=== PATIENT | female | born 1985 | race Caucasian/White ===

== ENCOUNTER 2019-02-21 10:43 | Day surgery (SDC) | payer OTHER ==
[~2019-02-21] VITALS: Ht 152.4 cm; Wt 64.0 kg
[~2019-02-21 10:43] MED LIST: ACET500; AIMOVIG AU70 MG/1 ML SC; AMOX500 PO; DULO30 PO; Esgic Tablet1 EACH PO; FERSU300 PO; HYDACE25S PR; IBUP600; IBUP600 PO; META400 PO; Norco 5-325 Ta1 EACH PO; OXYACE5T; OXYACE7.5T PO; PROACE100 PO; Sprintec1 EACH PO; TRAM50 PO; Zofran4 MG PO; [UNRECOGNIZED DRUG - OTHER]
--- NOTE | 2019-02-21 11:44 | NUR ---
History, Chart, Medications and Allergies reviewed before start of procedure. Lungs clear T/O to Auscultation. Patient confirms NPO status and agrees with scheduled surgery. Patient states colon prep results clear. Patient States Post-Procedure ride home has been arranged.
[2019-02-21] MEDS ORDERED: Amoxicillin500 MG PO (11:51)
[2019-02-21] MEDS ORDERED: Augmentin 875-1 EACH PO (11:52)
--- NOTE | 2019-02-21 12:42 | NUR ---
02/21/19 1242 ARACELI LANDON History, Chart, Medications and Allergies reviewed before start of procedure.MONITOR INTACT WITH CONTINUOUS PULSE OXIMETRY AND INTERMITTENT BP.O2 VIA N/C INTACT THROUGHOUT SEDATION/PROCEDURE. 3-LEAD EKG REVIEWED WITH PHYSICIAN PRIOR TO START OF PROCEDURE.PATIENT DETERMINED TO BE ASA APPROPRIATE FOR PROPOFOL SEDATION PRIOR TO START OF PROCEDURE BY .
--- NOTE | 2019-02-21 13:25 | NUR ---
ASSUMED CARE FROM MAKENZIE ARAGON. PT C/O SEVERE LLQ ABD PAIN PAIN. PT MOANING AND GROANING. DR. ROBLES ORDERED ABD XRAY. PT GIVEN WET SWAB FOR MOUTH, PT TO REMAIN NPO STATUS AT THIS TIME.
--- NOTE | 2019-02-21 13:37 | NUR ---
PT TAKEN TO RADIOLOGY VIA [facility].
--- NOTE | 2019-02-21 14:30 | NUR ---
Patient up to Ambulate independently. Gait steady. Discharge instructions reviewed with patient. Patient verbalizes understanding. Copy given to patient to take home. Patient States Post-Procedure ride home has been arranged. Discharged via wheelchair to private car for ride home.
[2019-03-13] MEDS ORDERED: Sprintec1 EACH PO (12:34)
[2019-03-13] MEDS ORDERED: AIMOVIG AU70 MG/1 ML SC (12:34)
[2019-03-13] MEDS ORDERED: FERSU300 PO (12:35)
[2019-03-13] MEDS ORDERED: DULO30 PO (12:35)
[2019-03-13] MEDS ORDERED: Fiorinal Capsu1 EACH (12:35)
[2019-03-13] MEDS ORDERED: TRAM50 PO (12:36)
== END 2019-02-21 14:33 | disposition home or self-care (01) ==
LOC: ORSCMMR 10:43 → ORD 12:30 → ORSCMMR 14:33
PROVIDERS: Internal Medicine Gastroenterology
PROC: 0DBH8ZX Excision of Cecum, Via Natural or Artificial Opening Endoscopic, Diagnostic (ICD-10-PCS; principal; 2019-02-21 12:30)
PROC: 0DBE8ZX Excision of Large Intestine, Via Natural or Artificial Opening Endoscopic, Diagnostic (ICD-10-PCS; principal; 2019-02-21 12:30)
DX: K92.1 Melena (principal); R10.32 Left lower quadrant pain; R19.4 Change in bowel habit; K59.00 Constipation, unspecified; D12.0 Benign neoplasm of cecum; K64.4 Residual hemorrhoidal skin tags; K64.8 Other hemorrhoids; Z87.891 Personal history of nicotine dependence; Z79.899 Other long term (current) drug therapy
CPT/HCPCS: 74019; 88305; J2250; J2704; J3010; J7120

== ENCOUNTER 2019-03-22 07:18 | Day surgery (SDC) | payer OTHER ==
[~2019-03-22] VITALS: Ht 149.9 cm; Wt 76.1 kg
[~2019-03-22 07:18] MED LIST changes: +Amoxicillin500 MG PO; +Augmentin 875-1 EACH PO; +Fiorinal Capsu1 EACH
--- NOTE | 2019-03-22 09:07 | NUR ---
03/22/19 0907 Coral Pascual FLUID DEFICIT OF 300 ML REPORTED TO SURGEON
--- NOTE | 2019-03-22 10:45 | NUR ---
03/22/19 [place]5 Arlyn Small RN RECIEVED REPORT FROM NURSE BOYER. PHILLIP. PT WAS IN THE RECLINER ACCOMPANIED BY HER . PT CURRENTLY RATES PAIN 8. RN ADMINISTERED 1 ADDITIONAL TAB OF PERCOCET AND 800MG IBUPROFEN PER DR'S ORDERS. PT IS TOLERATING PO FLUIDS AND CRACKERS WELL. PT DENIES NAUSEA.
== END 2019-03-22 11:14 | disposition home or self-care (01) ==
LOC: ORSCSDS 07:18
PROVIDERS: Obstetrics & Gynecology
PROC: 0UDB8ZX Extraction of Endometrium, Via Natural or Artificial Opening Endoscopic, Diagnostic (ICD-10-PCS; principal; 2019-03-22 08:30)
DX: N84.0 Polyp of corpus uteri (principal); N92.0 Excessive and frequent menstruation with regular cycle; K21.9 Gastro-esophageal reflux disease without esophagitis; Z79.899 Other long term (current) drug therapy
CPT/HCPCS: 88305; J0690; J1100; J2250; J2405; J2704; J3010; J7120

== ENCOUNTER 2021-03-16 13:07 | Emergency (ER) | payer OTHER ==
[~2021-03-16] VITALS: Ht 149.9 cm; Wt 78.0 kg
== END 2021-03-16 16:39 | disposition home or self-care (01) ==
LOC: ER 13:07
DX: U07.1 COVID-19 (principal); K59.09 Other constipation; K21.9 Gastro-esophageal reflux disease without esophagitis; Z79.899 Other long term (current) drug therapy; Z88.2 Allergy status to sulfonamides; Z88.6 Allergy status to analgesic agent
CPT/HCPCS: 96374; 96375; 99284-25; J0780; J1200; J3010; J7030

== ENCOUNTER 2023-03-19 09:24 | Emergency (ER) | payer BC ==
[~2023-03-19] VITALS: Ht 160 cm; Wt 65.8 kg
[2023-03-19 10:17] LABS: BASOPHILS ABSOLUTE AUTO 0.03 K/mm3 (0.00-0.23); BASOPHILS PERCENT AUTO 0 % (0-2); EOSINOPHILS ABSOLUTE AUTO 0.16 K/mm3 (0.00-0.68); EOSINOPHILS PERCENT AUTO 2 % (0-6); Hematocrit 37.4 % (33.0-51.0); Hemoglobin 12.6 g/dL (11.5-16.0); IMMATURE GRAN ABSOLUTE AUTO 0.03 K/mm3 (0.00-0.10); IMMATURE GRAN PERCENT AUTO 0 % (0-1); LYMPHOCYTES ABSOLUTE AUTO 1.92 K/mm3 (0.84-5.20); LYMPHOCYTES PERCENT AUTO 23 % (21-46); MONOCYTES ABSOLUTE AUTO 0.42 K/mm3 (0.16-1.47); MONOCYTES PERCENT AUTO 5 % (4-13); Mean Corpuscular HGB 29.5 pg (26.0-34.0); Mean Corpuscular HGB Conc 33.7 g/dL (31.5-36.5); Mean Corpuscular Volume 88 fL (80-100); Mean Platelet Volume 9.9 fL (9.1-12.4); NEUTROPHILS ABSOLUTE AUTO 5.74 K/mm3 (1.96-9.15); NEUTROPHILS PERCENT AUTO 69 % (41-73); Platelet Count 269 K/mm3 (150-400); RDW Coefficient Variation 11.9 % (11.7-14.2); RDW Standard Deviation 38.4 fL (35.1-46.3); Red Blood Cell Count 4.27 M/mm3 (3.80-5.20)
[2023-03-19 10:39] LABS: Albumin, Blood 3.7 g/dL (3.4-5.0); Albumin/Globulin Ratio 0.9 (0.8-1.8); Bilirubin, Total 0.2 mg/dL (0.1-1.0); Bun/Creatinine Ratio 25.1 (12.0-20.0); Calcium, Blood 9.3 mg/dL (8.5-10.1); Creatinine, Blood 0.52 mg/dL (0.40-1.00); Potassium, Blood 3.6 mmol/L (3.5-5.5); Total Protein, Blood 7.7 g/dL (6.4-8.2)
[2023-03-19] MEDS ORDERED: LOSA50 PO (11:41)
[2023-03-19] MEDS ORDERED: HYDROCODONE-AC1 EA19 PO (11:41)
[2023-03-19] MEDS ORDERED: Phenergan25 M1 PO (11:42)
[2023-03-19] MEDS ORDERED: OMEP20ER PO (11:42)
[2023-03-19] MEDS ORDERED: MILI 0.25-0.031 EAC1 PO (11:43)
[2023-03-19] MEDS ORDERED: CYCL10 PO (11:44)
[2023-03-19 12:19] LABS: Bilirubin, Direct <0.1 mg/dL (0.0-0.3); Bilirubin, Indirect Unable to Calculate mg/dL (0.1-0.7); Bilirubin, Total 0.3 mg/dL (0.1-1.0)
[2023-03-19 13:00] VITALS: BP 132/84
[2023-03-22] MEDS ORDERED: Norco 7.5-3251 EACH PO (17:59)
[2023-03-22] MEDS ORDERED: METPHE20 PO ×2 (18:00→18:01)
[2023-03-22] MEDS ORDERED: NURTEC ODT75 MG PO (18:04)
[2023-03-22] MEDS ORDERED: AIMOVIG AU140 MG/1 M SC (18:05)
[2023-03-22] MEDS ORDERED: TRAZ100 PO (18:06)
== END 2023-03-19 13:21 | disposition home or self-care (01) ==
LOC: ER 09:24
PROVIDERS: Physician Assistant; Student in an Organized Health Care Education/Training Program
DX: K29.70 Gastritis, unspecified, without bleeding (principal); Z88.2 Allergy status to sulfonamides; Z88.6 Allergy status to analgesic agent; Z79.3 Long term (current) use of hormonal contraceptives; Z79.899 Other long term (current) drug therapy; Z87.891 Personal history of nicotine dependence; Z87.19 Personal history of other diseases of the digestive system; Z86.010 Personal history of colon polyps
CPT/HCPCS: 74177; 80053; 82247; 82248; 83690; 84703; 85025; 96374-59; 96375; 99284-25; J1790; J1885; J2405; Q9967

== ENCOUNTER → 2024-12-04 | Outpatient (CLI) | payer OTHER ==
[~2024-12-04] MED LIST changes: +AIMOVIG AU140 MG/1 M SC; +CYCL10 PO; +HYDROCODONE-AC1 EA19 PO; +LOSA50 PO; +METPHE20 PO; +MILI 0.25-0.031 EAC1 PO; +NURTEC ODT75 MG PO; +Norco 7.5-3251 EACH PO; +OMEP20ER PO; +Phenergan25 M1 PO; +TRAZ100 PO
== END ==
LOC: LAB 15:05 → LAB SHORT 15:05
DX: N64.3 Galactorrhea not associated with childbirth (principal)
CPT/HCPCS: 84146

== ENCOUNTER → 2025-01-27 | Outpatient (CLI) | payer OTHER ==
[2025-01-27 16:28] LABS: Source, Urine Clean Catch
[2025-01-27 18:57] LABS: Bilirubin, Urine Neg (Neg); Glucose Qualitative, Urine Neg (Neg); Ketones, Urine Neg (Neg); Leukocyte Esterase, Urine 1+ (Neg); Protein, Urine 1+ (Neg); Specific Gravity, Urine 1.010 (1.003-1.022); Urobilinogen, Urine NORM (Normal)
[2025-01-27 19:11] LABS: Color, Urine Pale Yellow (P-Yellow)
[2025-01-27 19:12] LABS: Red Blood Cells, Urine 0-2 /hpf (0-2)
== END ==
LOC: LAB 16:27 → LAB SHORT 16:27
DX: R10.A1 Flank pain, right side (principal); R30.0 Dysuria; R33.9 Retention of urine, unspecified
CPT/HCPCS: 81001; 87077; 87086; 87186